=== PATIENT | male | born 1990 | race Caucasian/White ===

== ENCOUNTER 2025-04-12 20:42 | Emergency (ER) | payer BC, SELFPAY ==
[2025-04-12 20:46] VITALS: BP 171/98
--- NOTE | 2025-04-12 21:06 | ED.GENMED ---
History of Present Illness
General
Chief Complaint: Trauma Significant Mechanism
Source: patient
Time Seen by Provider: 04/12/25 21:01
History of Present Illness
History of Present Illness:
34-year-old male presenting to the emergency department for evaluation after he excellently hit his left third toe along a spinal corrector as part of a Pilates machine, pain now along the proximal aspect of the third toe. No other injuries were
sustained. No previous history of injury. No other concerns. Patient works at a orthopedic office.
Past History
Past History
ED Past Medical History: None
ED Past Surgical History: None
Social History
Tobacco: Non-smoker
Alcohol: Occasional
Drug: None
Living: with family
Employment: Employed
Review of Systems
Review of Systems
All Other Systems: ROS reviewed and negative except as documented in HPI and ROS
Phy Exam
Physical Exam
Physical Exam:
GENERAL: Alert , in no apparent distress
EYE: conjunctiva clear
Head: Normocephalic atraumatic
NECK: Supple,
ENT: mmm.
LUNGS: no acute respiratory distress
NEUROLOGICAL: Alert and oriented
SKIN: Warm and dry, skin intact.
MUSCULOSKELETAL: left foot: No obvious deformity, erythema, edema, ecchymosis, abrasions or lacerations. Tenderness at the base of the third toe. Extremity is otherwise warm and well-perfused and neurovascularly intact.
PSYCH: Normal and appropriate interaction.
Scores
Heart Failure Risk
Heart Failure Risk Score: Not Applicable
Heart Score for Chest Pain Patients
STEMI patient?: Not applicable
Withdrawal Assessment of Alcohol
Withdrawal Assessment Completed?: Not applicable
Course
Orders/Labs/Results
Orders:
Orders
04/12/25 20:43
Foot, Left 3 View [CR Foot - Left Min 3 Views] Stat
Comment:
Reason For Exam: pain
Vital Signs
Initial and Last Documented VS:
Initial Vital Signs
Pulse Resp BP Pulse Ox
87 18 171/98 98
04/12/25 20:46 04/12/25 20:46 04/12/25 20:46 04/12/25 20:46
Last Documented Vital Signs
Pulse Resp BP Pulse Ox
87 18 171/98 98
04/12/25 20:46 04/12/25 20:46 04/12/25 20:46 04/12/25 20:46
MDM/Problems Addressed
Differential Diagnosis Includes:
Contusion, sprain, fracture
MDM/Problems Addressed:
34-year-old male presenting the ER after injuring left third toe. No other injury sustained. X-ray ordered from triage shows no acute fracture. Offered to [facility] however patient declines. Patient otherwise stable for discharge home. Aware
of return precautions.
*Radiology
Radiology exam reviewed: preliminary read by ED provider (No acute fracture)
*Pulse Oximetry
Patient hypoxic: no
*Critical Care Note
Total Time (30-74mins, 75-104mins- exclusive of procedures): Not Applicable
ED Attending Note
-
Portions of this chart may have been created with voice recognition software.� Occasional wrong word or��sound alike� substitutions may have occurred due to the inherent limitations of voice recognition software.
Discharge Plan
Departure
Patient Disposition: Home (Routine Discharge)
Date of Disposition: 04/12/25
Time of Disposition: 21:06
Patient with high blood pressure during this ER visit?: Yes
Discharge Problem:
Contusion of third toe of left foot
Instructions: Common toe injuries
Interventions
Interventions:
*Risk Screen - Suicide Last Done: 04/12/25 20:44
*General Assessment Last Done: 04/12/25 20:58
*Neglect/Abuse Screening Last Done: 04/12/25 20:44
*ED- Fall Risk Assessment Last Done: 04/12/25 20:58
*ED COVID-19 Vaccine History Last Done: 04/12/25 20:58
*Nursing Disposition Last Done: 04/12/25 21:21
Discharge Date and Time
Discharge Date/Time: 04/12/25 21:21
Print Language: GREENLANDIC
== END 2025-04-12 21:21 | disposition home or self-care (01) ==
LOC: EMR 20:42
PROVIDERS: EMERGENCY PHYSICIAN Emergency Medicine; FAMILY PHYSICIAN Internal Medicine
DX: S90.32XA Contusion of left foot, initial encounter (principal); W22.8XXA Striking against or struck by other objects, initial encounter; R03.0 Elevated blood-pressure reading, without diagnosis of hypertension
CPT/HCPCS: 99283; 73630